=== PATIENT | female | born 1960 | race Caucasian/White ===

== ENCOUNTER → 2024-03-28 | Outpatient (BNVA) | payer BC, SELFPAY | END | disposition home or self-care (01) | PROVIDERS: PCP Physician Assistant; Referring Provider Physician Assistant; Visit Provider Urology | DX: Z09 Encounter for follow-up examination after completed treatment for conditions other than malignant neoplasm (principal); Z87.440 Personal history of urinary (tract) infections; E66.9 Obesity, unspecified; Z68.27 Body mass index [BMI] 27.0-27.9, adult | CPT/HCPCS: 81003; 99212; G0463 ==

== ENCOUNTER → 2024-09-01 | Outpatient (CLI) | payer BC, SELFPAY ==
--- NOTE | 2024-09-01 13:00 | XR_ITS ---
Examination: Transvaginal ultrasound of the pelvis, complete Technique: Transvaginal sonographic images pelvis performed using lopez scale imaging Exam date and time: September 01, 2024 1328 hours INDICATIONS: Right lower abdominal pelvic pain beginning 3 months ago. FINDINGS: Uterus 7.6 cm Endometrial stripe is thickened 16mm Right ovary obscured by bowel gas left ovary absent IMPRESSION: Abnormal thickening of the endometrial stripe 16 mm, recommend MRI pelvis follow-up pre and postcontrast to exclude malignant neoplasm of the endometrium
--- NOTE | 2024-09-01 13:00 | XR_ITS ---
Examination: Pelvic ultrasound, transabdominal, complete Technique: Transabdominal ultrasound of the pelvis performed using grayscale imaging Date and time of exam: September 01, 2024 1317 hours INDICATIONS: Right lower abdominal pain pelvic pain beginning 3 months ago FINDINGS: Uterus 8.8 cm, no uterine mass Abnormal thickening of the endometrial stripe 17 mm Right ovary 2.0 cm arterial flow Absent left ovary IMPRESSION: Abnormal thickening of the endometrial stripe, differential would include endometrial hyperplasia, malignant neoplasm of the endometrium Recommend MRI pelvis follow-up pre and postcontrast
== END | disposition home or self-care (01) ==
LOC: CDIM 12:46
PROVIDERS: PCP Nurse Practitioner Family; Referring Provider Nurse Practitioner Family; Visit Provider Nurse Practitioner Family
DX: R93.89 Abnormal findings on diagnostic imaging of other specified body structures (principal)
CPT/HCPCS: 76830; 76856

== ENCOUNTER → 2024-10-02 | Outpatient (CLI) | payer BC, SELFPAY ==
[2024-10-02 14:38] LABS: Anion Gap 11 (7-16); BUN/Creatinine Ratio 17 Ratio (12-20); Blood Urea Nitrogen 12 mg/dL (9-23); Calcium 10.8 mg/dL (8.3-10.6); Carbon Dioxide 28.8 mMol/L (20.0-31.0); Chloride 102 mMol/L (98-107); Creatinine (Component) 0.7 mg/dL (0.6-1.3); Glucose 159 mg/dL (74-106); Osmolality,Calculated 285 (275-295); Potassium 4.3 mMol/L (3.4-5.1); Sodium 142 mMol/L (136-145); eGFR > 60 See Note
== END | disposition home or self-care (01) ==
LOC: COPL 13:18
PROVIDERS: PCP Nurse Practitioner Family; Referring Provider Nurse Practitioner Family; Visit Provider Nurse Practitioner Family
DX: R93.89 Abnormal findings on diagnostic imaging of other specified body structures (principal)
CPT/HCPCS: 36415; 80048

== ENCOUNTER → 2024-10-12 | Outpatient (CLI) | payer BC, SELFPAY ==
--- NOTE | 2024-10-12 09:45 | XR_ITS ---
Examination: MRI pelvis with intravenous contrast. MRI pelvis without intravenous contrast. Date and time of exam: October 12, 2024 1026 hours INDICATIONS: Right lower pelvic pain beginning 5 minutes ago, transvaginal pelvic sonogram September 01, 2024 abnormal thickening of the endometrial stripe in this postmenopausal individual Technique: Multiple axial, sagittal and coronal sections of the pelvis obtained. Transverse images, TR 6020, TE 107. T1 weighted transverse images, TR 582, TE 9.5. T2-weighted sagittal images, TR 4000, TE 105. T2-weighted sagittal images, TR 4000, TE 5. Coronal images, TR 4210, TE 107. Axial and coronal images are obtained post 15 cc intravenous injection, gadolinium. Findings: Uterus 7.5 cm Fundal endometrial stripe appears normal The lower uterine segment endometrial stripe is 5 mm but no abnormal enhancement on the postcontrast images No adnexal mass No enhancing uterus mass No pelvic adenopathy IMPRESSION: No findings diagnostic for malignant neoplasm of the endometrium on this study, recommend 6 month follow-up transvaginal pelvic sonography
== END | disposition home or self-care (01) ==
LOC: SMRI 09:26
PROVIDERS: PCP Nurse Practitioner Family; Referring Provider Nurse Practitioner Family; Visit Provider Nurse Practitioner Family
DX: R93.89 Abnormal findings on diagnostic imaging of other specified body structures (principal)
CPT/HCPCS: 72197; A9577